=== PATIENT | female | born 1965 ===

== ENCOUNTER 2018-04-22 07:33 | Emergency (ER) | payer SELFPAY ==
[2018-04-22 07:38] VITALS: PULSE 78
[2018-04-22 07:40] VITALS: BMI 27.4
--- NOTE | 2018-04-22 08:04 | ED PDOC ---
HPI: Female Pain Time Seen by Provider: 04/22/18 07:50 Chief Complaint (Nursing): Female Genitourinary History Per: Patient Onset/Duration Of Symptoms: Days (2) Current Symptoms Are (Timing): Still Present Severity: Moderate Pain Scale Rating Of: 4 Quality Of Discomfort: Burning Associated Symptoms: Urinary Symptoms. denies: Fever Additional Complaint(s): Dysuria and frequency assoc with lower abd pain and back pain x 2 days. Denies fever or chills. Denies vomiting Past Medical History Vital Signs: Last Vital Signs Temp 98.7 F 04/22/18 07:37 Pulse 78 04/22/18 07:37 Resp 16 04/22/18 07:37 BP 103/63 04/22/18 07:37 Pulse Ox 99 04/22/18 07:37 - Medical History PMH: Asthma, Gastritis, Gall Bladder Disease, Hypercholesterolemia, Migraine Denies: Atrial Fibrillation, Bronchitis, Cardia Arrhythmia, CHF, COPD, Emphysema, HTN, Mitral Valve Prolapse, Peripheral Edema, Pneumonia, Pulmonary Embolism, Chronic Kidney Disease, Sleep Apnea - Surgical History Surgical History: Cholecystectomy Denies: Pacemaker Other surgeries: Hysterectomy - Family History Family History: States: Unknown Family Hx - Immunization History Hx Tetanus Toxoid Vaccination: No Hx Influenza Vaccination: No Hx Pneumococcal Vaccination: No - Home Medications Home Medications: Ambulatory Orders Medication Instructions Recorded Cholesterol Med 01/07/18 Naproxen [Naprosyn] 500 mg PO Q12H #20 tab 04/22/18 Sulfamethoxazole/Trimethoprim 1 tab PO BID #20 tab 04/22/18 [Bactrim DS 800 mg-160 mg] - Allergies Allergies/Adverse Reactions: Allergies Allergy/AdvReac Type Severity Reaction Status Date / Time No Known Allergies Allergy Verified 01/07/18 18:19 Review of Systems Constitutional: Negative for: Fever, Chills Gastrointestinal: Positive for: Abdominal Pain. Negative for: Vomiting Genitourinary Female: Positive for: Dysuria, Frequency Musculoskeletal: Positive for: Back Pain Physical Exam - Physical Exam Appears: Positive for: Non-toxic, No Acute Distress Skin: Positive for: Normal Color, Warm, DRY Gastrointestinal/Abdominal: Positive for: Bowel Sounds, Soft, Tenderness (Suprapubic tenderness) Back: Negative for: L CVA Tenderness, R CVA Tenderness - ECG O2 Sat by Pulse Oximetry: 99 Medical Decision Making Medical Decision Making: Dysuria and frequency, considering UTI, doubt pyelonephritis as pt is afebrile and nontoxic Disposition - Clinical Impression Clinical Impression: Urinary tract infection - Patient ED Disposition Is Patient to be Admitted: No Counseled Patient/Family Regarding: Studies Performed, Diagnosis, Need For Followup, Rx Given - Disposition Referrals: [facility] [Outside] Disposition: Routine/Home Disposition Time: 08:29 Condition: FAIR Prescriptions: Naproxen [Naprosyn] 500 mg PO Q12H #20 tab Sulfamethoxazole/Trimethoprim [Bactrim DS 800 mg-160 mg] 1 tab PO BID #20 tab Instructions: Urinary Tract Infections in Adults Forms: [facility] (Burkinan) Print Language: LITHUANIAN
[2018-04-22 09:11] VITALS: BP 127/78; RESP 19; TEMP 97.6; O2SAT 98
== END 2018-04-22 10:01 | disposition home or self-care (01) ==
LOC: H.ER 07:33
DX: N39.0 Urinary tract infection, site not specified (principal)